=== PATIENT | male | born 1960 ===

== ENCOUNTER 2017-12-27 05:11 | Emergency (ER) | payer OTHER ==
[~2017-12-27] VITALS: Ht 175.3 cm; Wt 84.8 kg
[2017-12-27] MEDS ORDERED: ULTRACET PO (08:44)
[2017-12-27] MEDS ORDERED: TAMS0.4C PO (08:44)
== END 2017-12-27 09:30 ==
LOC: ER 05:11
DX: N21.1 Calculus in urethra (principal); K57.30 Diverticulosis of large intestine without perforation or abscess without bleeding; R10.9 Unspecified abdominal pain